=== PATIENT | male | born 1970 | race Caucasian/White ===

== ENCOUNTER 2019-10-23 09:26 | Emergency (ER) | payer OTHER, SELFPAY ==
[2019-10-23 09:33] VITALS: BP 147/84; PULSE 80; RESP 16; TEMP 36.8; O2SAT 97
--- NOTE | 2019-10-23 09:47 | W.ED.GENAD ---
Discharge Plan Disposition Patient Disposition: HOME Condition: Stable Discharge Details Chief Complaint: Sorethroat Clinical Impression: Strep pharyngitis Primary Care Provider: Unknown,Unknown ED Provider: Angel Marmolejo Home Meds and New Rx's Prescriptions: New amoxicillin 875 mg tablet 875 mg PO BID Qty: 20 RF: 0 Discharge Instructions Instructions: Strep Throat (ED) Additional Instructions: Amoxicillin as directed. [id number] Tylenol and/or Motrin as directed for discomfort. Salt water gargles as tolerated. Please watch for new or worsening symptoms and return to the ER for any concerns Medical Decision Making 3-day history of subjective fever, body ache, main complaint is that of sore throat. Certainly does have pharyngeal erythema but no signs of abscess or compromised airway. He appears well, nontoxic, currently afebrile. Will obtain rapid strep to rule out strep pharyngitis, less likely flu, pneumonia, viral URI, otitis media, etc. Rapid strep positive. Discussed findings with patient and family, will provide amoxicillin prescription. No additional questions or concerns HPI General Mode of arrival: ambulatory. Date/Time Provider Initiated Documentation: 10/23/19 09:28. Limitations to Documentation: no limitations. Information obtained by: patient and family. HPI Narrative: 49-year-old gentleman with no significant past medical history presents to the ER for evaluation of moderate sore throat that began on Tuesday, body aches, subjective fever. Does report similar sick contacts. Denies ear pain, cough, chest pain, shortness of breath abdominal pain, nausea, vomiting. Related Data Home Medications Medication Instructions Recorded Confirmed amoxicillin 875 mg PO BID #20 tab 10/23/19 Previous Rx's Medication Instructions Recorded amoxicillin 875 mg PO BID #20 tab 10/23/19 Allergies Allergy/AdvReac Type Severity Reaction Status Date / Time No Known Allergies Allergy Unverified 10/23/19 09:37 General Stated Complaint: Sorethroat FELIPE: 4 Review of Systems Constitutional Constitutional: Denies fever(s) Eyes Eyes: Denies eye discharge ENT Ears, Nose, Mouth, and Throat: Reports nasal discharge and Denies sore throat Respiratory Respiratory: Denies cough Gastrointestinal Gastrointestinal: Denies abdominal pain, Denies nausea and Denies vomiting Musculoskeletal Musculoskeletal: Reports myalgias Integumentary/Breasts Skin/Breast: Denies rash [facility] Social History Smoking/Tobacco Use Status: Never Alcohol Intake: never Substance use type: does not use Exam Const General: cooperative, healthy appearing, comfortable and no acute distress Orientation: alert and awake HENMT Head: normal to inspection, normocephalic and atraumatic Ears: external ears normal, TM's normal bilaterally and EAC's normal Mouth: moist mucous membranes Throat: uvula midline, no peritonsillar masses, posterior oropharynx abnormal erythema; no exudates, no postnasal drainage, tonsils present and uvula not displaced Eyes Conjunctivae: conjunctivae normal Neck Neck: normal visual inspection, full ROM, no lymphadenopathy, no meningeal signs, trachea midline and supple Lymphatic: no lymphadenopathy noted Resp Effort & Inspection: normal respiratory effort and able to speak in complete sentences Auscultation: clear to auscultation bilaterally Cardio Rate: regular rate Rhythm: regular rhythm Skin General skin exam: no rashes or lesions noted Neuro General: alert, awake, moves all extremities and no focal motor deficits Sensory Exam: no sensory deficits noted Psych Appearance: grossly normal Mental Status: mental status grossly normal Course Vital Signs Vital signs: Vital Signs Temperature 36.8 C 10/23/19 09:33 Pulse 80 10/23/19 09:33 Respiratory Rate 16 10/23/19 09:33 Blood Pressure 147/84 H 10/23/19 09:33 Pulse Oximetry 97 10/23/19 09:33 Temperature 36.8 C 10/23/19 09:33 Temperature Source Skin 10/23/19 09:33 Pulse 80 10/23/19 09:33 Respiratory Rate 16 10/23/19 09:33 Respiratory Effort Non-Labored 10/23/19 09:33 Blood Pressure 147/84 H 10/23/19 09:33 Pulse Oximetry 97 10/23/19 09:33 Oxygen Delivery Method Room Air 10/23/19 09:33 Oxygen Flow Rate 0 10/23/19 09:33 Pain Level 2 10/23/19 09:44 Lab/Test Results Lab/Test Results: POC Strep Test-LIZZY(Rapid) Start: 10/23/19 09:36 Freq: .Rapid Strep Test Status: Active Protocol: Document 10/23/19 09:40 MR (Rec: 10/23/19 09:40 [id number]) Strep test-LIZZY(Rapid)-POC POC-Strep test-LIZZY (Rapid) Positive POC-Strep test-LIZZY (Rapid) Positive
== END 2019-10-23 09:55 | disposition home or self-care (01) ==
LOC: ER 10:25
PROVIDERS: Emergency Provider Physician Assistant
DX: J02.0 Streptococcal pharyngitis (principal)
CPT/HCPCS: 87880; 99283